=== PATIENT | female | born 1960 | race Caucasian/White ===

== ENCOUNTER 2016-09-14 05:04 | Emergency (ER) | payer MEDICARE, OTHER ==
--- NOTE | 2016-09-14 05:20 | ED ---
General Adult HPI - General Chief complaint: Back Pain/Injury Stated complaint: back pain Time Seen by Provider: 09/14/16 05:20 Source: patient, RN notes reviewed, old records reviewed Mode of arrival: ambulatory Limitations: no limitations - History of Present Illness Initial comments: This is a 56-year-old female here for evaluation of back pain. Patient has mechanical back pain. Patient is slip without fall. No trauma, is a twisting injury of back.. Patient has history of fibromyalgia history of chronic pain. Patient attributed follow mechanical fall, did not land on her back and is complains of strain in her lower back region. Review of Systems ROS Statement: Those systems with pertinent positive or pertinent negative responses have been documented in the HPI. ROS Other: All systems not noted in ROS Statement are negative. Past Medical History Past Medical History: Fibromyalgia, Osteoarthritis (OA) Additional Past Medical History / Comment(s): lupus, arthritis, chron's degenerative disc disease, History of Any Multi-Drug Resistant Organisms: None Reported Past Surgical History: Cholecystectomy Additional Past Surgical History / Comment(s): left foot Past Psychological History: No Psychological Hx Reported Smoking Status: Current every day smoker Past Alcohol Use History: None Reported Past Drug Use History: Marijuana General Exam Limitations: no limitations General appearance: alert, in no apparent distress Head exam: Present: atraumatic, normocephalic, normal inspection Eye exam: Present: normal appearance, PERRL, EOMI. Absent: scleral icterus, conjunctival injection, periorbital swelling ENT exam: Present: normal exam, mucous membranes moist Neck exam: Present: normal inspection. Absent: tenderness, meningismus, lymphadenopathy Respiratory exam: Present: normal lung sounds bilaterally. Absent: respiratory distress, wheezes, rales, rhonchi, stridor Cardiovascular Exam: Present: regular rate, normal rhythm, normal heart sounds. Absent: systolic murmur, diastolic murmur, rubs, gallop, clicks GI/Abdominal exam: Present: soft, normal bowel sounds. Absent: distended, tenderness, guarding, rebound, rigid Extremities exam: Present: normal inspection, full ROM, normal capillary refill. Absent: tenderness, pedal edema, joint swelling, calf tenderness Back exam: Present: normal inspection Neurological exam: Present: alert, oriented X3, CN II-XII intact Psychiatric exam: Present: normal affect, normal mood Skin exam: Present: warm, dry, intact, normal color. Absent: rash Course Vital Signs 09/14/16 05:08 Temperature 97.5 F L Pulse Rate 55 L Respiratory 16 Rate Blood Pressure 114/58 O2 Sat by Pulse 99 Oximetry - Reevaluation(s) Reevaluation #1: 09/14/16 05:21 Patient's pain is improved Medical Decision Making - Medical Decision Making 56-year-old years status post slip and sharp. Patient has back pain, back strain, no traumatic injury, no loss of bowel or bladder, no neurological injury. Patient can be discharged home Disposition Clinical Impression: Mechanical back pain, Strain of lumbar region Disposition: HOME SELF-CARE Instructions: Acute Low Back Pain (ED), Chronic Back Pain (ED) Referrals: None,Stated [Primary Care Provider] - 1-2 days
[2016-09-14] MEDS ORDERED: traMADol 50 MG TAB PO STA (05:26)
[2016-09-14] MEDS ORDERED: KETOROLAC 60 MG/2 ML VIAL IM STA (05:26)
[2016-09-14 06:22] VITALS: BP 121/73; PULSE 56; RESP 18; TEMP 97.6
== END 2016-09-14 06:20 | disposition home or self-care (01) ==
LOC: EC 05:04
DX: S39.012A Strain of muscle, fascia and tendon of lower back, initial encounter (principal); M79.7 Fibromyalgia; M19.90 Unspecified osteoarthritis, unspecified site; F17.200 Nicotine dependence, unspecified, uncomplicated; X58.XXXA Exposure to other specified factors, initial encounter
CPT/HCPCS: 99283; 96372; J1885